=== PATIENT | female | born 1940 | race Caucasian/White ===

== ENCOUNTER 2021-04-30 14:03 | Outpatient (CLI) | payer MEDICARE | END 2021-04-30 14:04 | disposition home or self-care (01) | LOC: CSHMAMMO 14:03 | PROVIDERS: ATTEND Internal Medicine | DX: Z12.31 Encounter for screening mammogram for malignant neoplasm of breast (principal); Z98.890 Other specified postprocedural states; Z85.3 Personal history of malignant neoplasm of breast; Z85.850 Personal history of malignant neoplasm of thyroid; Z80.3 Family history of malignant neoplasm of breast | CPT/HCPCS: 77063; 77067 ==

== ENCOUNTER 2022-03-16 14:59 | Outpatient (CLI) | payer MEDICARE, OTHER | END 2022-03-16 15:00 | disposition home or self-care (01) | LOC: CSHRAD 14:59 | PROVIDERS: ATTEND Internal Medicine | DX: J44.9 Chronic obstructive pulmonary disease, unspecified (principal); E78.2 Mixed hyperlipidemia; R10.32 Left lower quadrant pain; R35.0 Frequency of micturition; E11.9 Type 2 diabetes mellitus without complications; Z85.850 Personal history of malignant neoplasm of thyroid | CPT/HCPCS: 36415; 71046; 80053; 80061; 81001; 82043; 83036; 84439; 84443; 85025; 87086 ==

== ENCOUNTER 2022-03-31 09:06 | Outpatient (CLI) | payer MEDICARE, OTHER ==
[2022-03-31] MEDS ORDERED: Iopamidol 300 61% 100 ML VIAL FS ONE (09:29)
== END 2022-03-31 09:07 | disposition home or self-care (01) ==
LOC: CSHCT 09:06
PROVIDERS: ATTEND Internal Medicine
DX: R10.32 Left lower quadrant pain (principal); J85.0 Gangrene and necrosis of lung; J90 Pleural effusion, not elsewhere classified; M62.89 Other specified disorders of muscle
CPT/HCPCS: 74177; 82565

== ENCOUNTER 2022-07-30 13:48 | Outpatient (CLI) | payer MEDICARE, OTHER | END 2022-07-30 13:49 | disposition home or self-care (01) | LOC: CSHMAMMO 13:48 | PROVIDERS: ATTEND Internal Medicine | DX: Z12.31 Encounter for screening mammogram for malignant neoplasm of breast (principal); Z85.3 Personal history of malignant neoplasm of breast; Z85.850 Personal history of malignant neoplasm of thyroid; Z80.3 Family history of malignant neoplasm of breast | CPT/HCPCS: 77063; 77067 ==

== ENCOUNTER 2022-10-13 12:26 | Outpatient (CLI) | payer MEDICARE, OTHER | END 2022-10-13 12:27 | disposition home or self-care (01) | LOC: CSHCT 12:26 | PROVIDERS: ATTEND Internal Medicine Sleep Medicine | DX: R93.89 Abnormal findings on diagnostic imaging of other specified body structures (principal); R91.1 Solitary pulmonary nodule; R91.8 Other nonspecific abnormal finding of lung field | CPT/HCPCS: 71250 ==